=== PATIENT | female | born 1965 | race Caucasian/White ===

== ENCOUNTER 2016-10-08 09:58 | Emergency (ER) | payer OTHER ==
[~2016-10-08] VITALS: Ht 167.6 cm; Wt 81.2 kg
[~2016-10-08 09:58] MED LIST: ATENOLOL25 M1 PO; BACTRIM DS 8001 TAB PO; DILAUDID2 M1 PO; DULERA1 AR1 IH; ENJUVIA0.3 MG PO; FLEXERIL10 MG PO; FLEXERIL5 MG PO; FLONASE 50 MCG16 GM; KAPIDEX60 MG PO; LEVOTHYROXINE0.1 M1 PO; LEVOTHYROXINE0.15 MG PO; LORTAB 10/3251 TAB PO; LORTAB 5/500 501 TAB PO; LORTAB 500 MG-71 TAB PO; MEDROL 4MG. DOSE4 MG PO; NAPROSYN 500MG500 MG PO; NASONEX0.05 MG/AC NS; NORCO 325 MG-51 TAB PO; OMEGA 31000 MG PO; PERCOCET 10 MG1 EACH PO; PERCOCET 5/3251 EACH PO; PHENERGAN 25MG.25 M1 PO; PHENERGAN25 M3 PO; PRAVACHOL 20MG.20 MG PO; PREDNISONE50 MG PO; PROVENTIL0.09 MG/A1 IN; SINGULAIR10 MG PO; VICODIN 5/500 T1 TAB PO; VITAMIN D50000 IU PO; VOLTAREN75 MG PO; ZOFRAN4 MG PO
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
[2016-10-08 10:40] VITALS: BP 139/81
== END 2016-10-08 10:50 | disposition home or self-care (01) ==
LOC: ER 09:58
DX: S09.90XA Unspecified injury of head, initial encounter (principal); V89.2XXA Person injured in unspecified motor-vehicle accident, traffic, initial encounter

== ENCOUNTER 2017-03-16 17:36 | Observation (INO) | payer OTHER ==
[~2017-03-16] VITALS: Ht 167.6 cm; Wt 88.5 kg
[2017-03-16 17:48] VITALS: BP 123/83
[2017-03-16 18:24] LABS: LYMPH # 1.1 K/mm3 (0.7-4.5); LYMPH % 8.2 % (10-50.0)
[2017-03-16 18:28] LABS: HEMOGLOBIN 14.8 g/dL (12.2-16.2)
--- NOTE | 2017-03-16 18:39 | Emergency Room Report ---
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 N Clinical Suspician of Infection? N Mental Status: 1 - Regular (Normal Baseline) Sepsis Risk:Low Sepsis Risk Have you (or family members/close friends) recently traveled outside the [place]? N If Yes, where/when: Have you had exposure to infectious disease within the past month? TB? Other? Specify: Comment The patient states that she has not felt well since Sunday 3 days ago. She was at a conference and had eaten food that she thought caused an exacerbation of a recurrent gastroenteritis. She has had abdominal cramping and distention ever since Sunday. Today she began having vomiting. She also has severe sinus pressure ever since awakening this morning, this is also recurrent. She went to Dr. Mitchell's office and was given an injection of Rocephin, Depo-Medrol, and Decadron. She now comes to the emergency room because of the repetitive vomiting. No diarrhea. She is having normal bowel movements and passing flatus. No urinary symptoms. No fever. She has been seen here for this in the past and has been admitted. She has had a CT scan. ALLERGIES Coded Allergies: NSAIDS (Non-Steroidal Anti-Inflamma (SEVERE ULCERS 03/16/17) Home Medications Active Scripts PROMETHAZINE HCL (Phenergan 25MG Tab (Geq)) 25 MG PO Q6HP PRN N/V #14 TAB Prov: 09/09/16 ONDANSETRON HCL (Zofran 4MG Tab) 4 MG PO Q8HP PRN NAUSEA AND VOMITING #20 TAB Prov: 09/09/16 HYDROCODONE/ACETAMINOPHEN ([place] 5-325 Tablet) 1 TAB PO Q6HP PRN pain #10 TAB Prov: 09/09/16 Reported Medications Dexlansoprazole (Dexilant) 60 MG PO Q DAY #30 30 Days Levothyroxine Sodium (Levothyroxine 0.15MG) 0.2 MG PO DAILY ERGOCALCIFEROL (VITAMIN D2) (Vitamin D2) 50,000 IUNITS PO TWICE A WEEK #8 History Medical History General CAD? No Angina: No [place]: No Hypertension? No Hyperlipidemia? Yes CHF? No DVT? No PE? No COPD? No Asthma? Yes Anemia? No GERD? No Gastric ulcers? No GI Bleed? No Hernia? No Thyroid Problems? Yes Hypothyroidism? Yes CVA? No Seizures? No Diabetes? No Insulin Dependent: No Insulin Pump: No Home FSBS? No Renal Insuffiency? No End Stage Renal Disease? No UTI? Yes Stones? Yes BPH? No GB Disease: Yes Nephritic Syndrome? No Asplenia? No Hepatitis? No Sickle Cell Disease? No Arthritis? No Migraines? No Cataracts? No Glaucoma? No MRSA? No HIV? No TB? No Anxiety? No Depression? No Cancer? Yes Site: THYROID More? 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 Family History Family Hx Diabetes No CAD Yes Hypertension Yes Hyperlipidemia No Cancer Yes TB No Social History Smoking Hx Smoker: Former Smoker Tobacco: No Type N/A Are you/the child exposed to second-hand smoke: No Alcohol Alcohol: No Review of Systems All Other Systems Reviewed and Negative Constitutional denies fever Gastrointestinal abdominal pain, denies diarrhea, nausea, vomiting Psychiatric/Neurological headache Physical Exam Vital Signs Vital Signs Date Time Temp Pulse Resp B/P Pulse O2 O2 Flow FiO2 Ox Delivery Rate 03/16 1934 82 20 113/71 98 03/16 1931 20 03/16 1748 98.3 86 18 123/83 97 General Appearance no apparent distress Eye Exam - bilateral eye normal exam, bilateral eye PERRL, bilateral eye EOMI Ear, Nose, Throat tender paranasal sinuses Neck normal inspection, non-tender, supple, full range of motion Respiratory Status Yes: trachea midline, chest symmetrical, non tender chest. No: respiratory distress. Lung Sounds bilateral: normal breath sounds, lungs clear. Cardiovascular normal exam, regular rate/rhythm, no peripheral edema, no gallop, no JVD, no murmur, no rub, normal peripheral pulses Peripheral Pulses Pulses normal Yes Gastrointestinal normal bowel sounds, normal exam, non tender, soft, no organomegaly Extremities non-tender, normal range of motion, normal inspection Neurologic alert, normal exam, oriented x 3 Mental status normal mood/affect Skin intact, normal color, warm/dry Medical Decision Making LABS/Meds/Orders Pt receiving controlled substance in ED? Yes Jairo was queried for this patient? No Reason not queried - emergent pt cond=no time Results/Orders Laboratory Tests 03/16/17 1755: Sodium 137, Potassium 4.1, Chloride 99, Carbon Dioxide 33 H, BUN 19 H, Creatinine 0.9, Estimated Creat Clear 88, Estimated GFR (MDRD) 66, Glucose 139 H, Calcium 9.1, Total Bilirubin 0.6, AST 11 L, ALT 33, Alkaline Phosphatase 70, Total Protein 8.1, Albumin 4.1, Globulin 4.0 H, Albumin/Globulin Ratio 1.0 L, Amylase 58, Lipase 140, WBC 13.8 H, RBC 4.97, Hgb 14.8, Hct 45.5, MCV 91.6, RDW 12.9, Plt Count 312, MPV 7.9, Gran % 87.8 H, Gran # 12.1 H, Total Counted 100, Lymphocytes % 8.2 L, Monocytes % 3.2, Eosinophils % 0.4, Basophils % 0.4, Neutrophils 87 H, Band Neutrophils 2, Lymphocytes (Manual) 9 L, Lymphocytes # 1.1, Monocytes (Manual) 2, Monocytes # 0.4, Eosinophils # 0.1, Basophils # 0.1, RBC/WBC/PLT Morphology NORMAL, Platelet Estimate NORMAL, PUBS MCHC 32.6, MCH 29.9, Influenza Type A Ag NOT DETECTED, Influenza Type B Ag NOT DETECTED Current Medication Orders Sig/Sofya Start time Last Medication Dose Route Stop Time Status Admin Metronidazole 100 ML ONCE ONE 03/16 2045 AC IV 03/16 2144 Hydromorphone HCl 1 MG ONCE ONE 03/16 1930 DC 03/16 IV 03/16 Promethazine HCl 12.5 MG ONCE ONE 03/16 1930 DC 03/16 IV 03/16 Sodium Chloride 25 ML ONCE ONE 03/16 1930 DC 03/16 IV 03/16 Promethazine HCl 0 .STK-MED ONE 03/16 1929 DC .ROUTE Sodium Chloride 25 ML .STK-MED ONE 03/16 1929 DC IV Hydromorphone HCl 0 .STK-MED ONE 03/16 1928 DC .ROUTE Sodium Chloride 10 ML PRN PRN 03/16 181 AC IV 03/17 1803 Sodium Chloride 25 ML .STK-MED ONE 03/16 175 DC IV Sodium Chloride 1,000 ML .STK-MED ONE 03/16 1750 DC IV Promethazine HCl 0 .STK-MED ONE 03/16 1749 DC .ROUTE Orders Procedure Date/time Status DIET-NOTHING BY MOUTH 03/[address] ABD & PELVIS W/O CONTRAST 03/[address] ABD/PELVIS REQ 03/16 1923 Active IV SALINE LOCK 03/16 1803 Active LIPASE 03/16 180 Complete INFLUENZA A&B ANTIGENS 03/16 1803 Complete CBC WITH AUTO DIFF 03/16 1803 Complete CHEM 12 PROFILE 03/16 1803 Complete AMYLASE 03/16 1803 Complete DIFFERENTIAL-WBC 03/16 1755 Complete XRAY/CT/US XRAY/CT/US CT abdomen, pelvis Comment CT scan interpreted by [facility] radiologist. Faxed report received and reviewed: Scattered: Chronic wall thickening could be due to lack of distention or colitis. Progress - 8:35 PM: I have discussed the case with Dr. Mitchell who agrees to admit the patient to the hospital. We discussed the patient's clinical information, including history, exam, laboratory and radiology results and ED course. He will write admission orders Dr. Mitchell states that on her last admission she was diagnosed with C. difficile. Specific orders requested by the admitting physician: Begin Flagyl in the emergency department Departure Departure Disposition Still a Patient Clinical Impression Primary Impression: Colitis Secondary Impressions: Sinus headache Condition STABLE Referrals DIVYA SANFORD (Family) ED Critical Care Critical Care No at 2032
[2017-03-16 18:53] LABS: NEUTROPHILS 87 % (42-76)
--- NOTE | 2017-03-16 21:04 | HISTORY AND PHYSICAL REPORT ---
Demographics: Admit date: 03/16/17 Chief complaint: abd pain PRIMARY DIAGNOSIS: abd pain Allergies: Coded Allergies: NSAIDS (Non-Steroidal Anti-Inflamma (SEVERE ULCERS 03/16/17) History of present illness: History of present illness: this wf was seen in office earlier with more of resp type illness and was given im meds but has continued to have sx and now with more gi type sx with pain and vomiting - had c diff in recent past -pt was seen in the ed earlier patient states that she has not felt well since Sunday 3 days ago. She was at a conference and had eaten food that she thought caused an exacerbation of a recurrent gastroenteritis. She has had abdominal cramping and distention ever since Sunday. Today she began having vomiting. She also has severe sinus pressure ever since awakening this morning, this is also recurrent. She went to Dr. Mitchell's office and was given an injection of Rocephin, Depo-Medrol, and Decadron. She now comes to the emergency room because of the repetitive vomiting. No diarrhea. She is having normal bowel movements and passing flatus. No urinary symptoms. No fever. She has been seen here for this in the past and has been admitted. She has had a CT scan.pt with continued sx in the ed despite rx and had abn ct and labs and was admitted for fluids and treatment Past medical history: Family HX Family Hx Insignificant Yes Immunization HX Ped.Immunizations UTD Yes DT/Tetanus Unknown Flu 2015-FSN Pneumonia Refuses General CAD? No Angina: No [place]: No Hypertension? No Hyperlipidemia? Yes CHF? No DVT? No PE? No COPD? No Asthma? Yes Anemia? No GERD? No Gastric ulcers? No GI Bleed? No Hernia? No Thyroid Problems? Yes Hypothyroidism? Yes CVA? No Seizures? No Diabetes? No Insulin Dependent: No Insulin Pump: No Home FSBS? No Renal Insuffiency? No UTI? Yes Stones? Yes BPH? No GB Disease: Yes Nephritic Syndrome? No Asplenia? No Hepatitis? No Sickle Cell Disease? No Arthritis? No Migraines? No Cataracts? No Glaucoma? No MRSA? No HIV? No TB? No Anxiety? No Depression? No Cancer? Yes Site: THYROID More? No Past Surgical HX Previous Surgery?Y HYSTERECTOMY GALLBLADDER TONSILS PERICARDECTOMY BACK, KYPHOPLASTY T11 PARTIAL THYROIDECTOMY X2 Current home meds: Active Scripts PROMETHAZINE HCL (Phenergan 25MG Tab (Geq)) 25 MG PO Q6HP PRN N/V #14 TAB Prov: 09/09/16 ONDANSETRON HCL (Zofran 4MG Tab) 4 MG PO Q8HP PRN NAUSEA AND VOMITING #20 TAB Prov: 09/09/16 HYDROCODONE/ACETAMINOPHEN ([place] 5-325 Tablet) 1 TAB PO Q6HP PRN pain #10 TAB Prov: 09/09/16 Reported Medications Dexlansoprazole (Dexilant) 60 MG PO Q DAY #30 30 Days Levothyroxine Sodium (Levothyroxine 0.15MG) 0.2 MG PO DAILY ERGOCALCIFEROL (VITAMIN D2) (Vitamin D2) 50,000 IUNITS PO TWICE A WEEK #8 Social Hx: Smoking HX Tobacco No Type N/A Are you/the child exposed to second-hand smoke: No Alcohol Alcohol: No Hx of Drug Use Drug Use? No Patien't marital status is Patient's support system is good Review of systems: Constitutional see HPI, weakness. No: fever. Eyes No: drainage. Ears, Nose, Mouth, Throat No ear discharge, No nose congestion, No epistaxis, No throat pain Respiratory No: cough, shortness of breath, wheezing. Cardiovascular No chest pain, No palpitations, No syncope Gastrointestinal/Abdominal see HPI, abdominal pain, diarrhea, nausea, poor appetite, poor fluid intake, vomiting Genitourinary No: dysuria, frequency, hesitancy, hematuria. Musculoskeletal No: back pain, joint pain, joint swelling, neck pain. Skin No: rash. Neurological No: headache, seizure disorder. Psychiatric No: depressed. Exam: Lab data for last 24 hours: Laboratory Tests 03/16/17 1755: ESR 3 03/16/17 1755: Sodium 137, Potassium 4.1, Chloride 99, Carbon Dioxide 33 H, BUN 19 H, Creatinine 0.9, Estimated Creat Clear 88, Estimated GFR (MDRD) 66, Glucose 139 H, Calcium 9.1, Total Bilirubin 0.6, AST 11 L, ALT 33, Alkaline Phosphatase 70, Total Protein 8.1, Albumin 4.1, Globulin 4.0 H, Albumin/Globulin Ratio 1.0 L, Amylase 58, Lipase 140, WBC 13.8 H, RBC 4.97, Hgb 14.8, Hct 45.5, MCV 91.6, RDW 12.9, Plt Count 312, MPV 7.9, Gran % 87.8 H, Gran # 12.1 H, Total Counted 100, Lymphocytes % 8.2 L, Monocytes % 3.2, Eosinophils % 0.4, Basophils % 0.4, Neutrophils 87 H, Band Neutrophils 2, Lymphocytes (Manual) 9 L, Lymphocytes # 1.1, Monocytes (Manual) 2, Monocytes # 0.4, Eosinophils # 0.1, Basophils # 0.1, RBC/WBC/PLT Morphology NORMAL, Platelet Estimate NORMAL, PUBS MCHC 32.6, MCH 29.9, Influenza Type A Ag NOT DETECTED, Influenza Type B Ag NOT DETECTED Admission vital signs: 1ST Vital Signs Result Date Time Pulse Ox 97 03/16 174 B/P 123/83 03/16 1748 Temp 98.3 03/16 174 Pulse 86 03/16 1748 Resp 18 03/16 1748 O2 Delivery ROOM AIR 03/165 Exam General appearance: alert Eyes: anicteric, PERRLA ENT: dry mucous membranes Neck: no JVD Cardiovascular: regular rate & rhythm, no murmur Respiratory: clear to auscultation, no respiratory distress ABD: soft, abnormal bowel sounds, tenderness Genitourinary: no hematuria Extremities: moves all Musculoskeletal: equal muscle strength Skin: dry Neuro: alert, area development consultant II-XII nml as tested Additional information: will hydrate pt and give iv abx as she presents with colitis Plan: Problem List 1. Colitis Plan: pt has failed op and ed treatment - will need abx and fluids with pain and nausea meds at 0455
[2017-03-16 21:55] VITALS: BP 118/86
[2017-03-16 22:12] VITALS: BP 118/86
[2017-03-17 04:05] VITALS: BP 118/72
[2017-03-17 07:08] LABS: HEMOGLOBIN 13.9 g/dL (12.2-16.2)
--- NOTE | 2017-03-17 07:27 | RADIOLOGY REPORT PS360 ---
CT ABD PELVIS W/O CONTRAST CLINICAL INDICATION: Abdominal pain and distention PAIN / DISTENTION ORDERING PHYSICIAN: Chau Mitchell MD PATIENT AGE: 51 years COMPARISON: 09/08/2016 TECHNIQUE: Axial images obtained with sagittal and coronal reformats. PROCEDURE: Oral Contrast: None IV Contrast: None . FINDINGS: No acute finding in the lung bases. Prior cholecystectomy. No biliary dilatation. The liver, spleen, adrenal glands, and pancreas have an unremarkable unenhanced CT appearance. There is a 4 mm nonobstructing stone in the upper pole the left kidney. No hydronephrosis or ureteral calculi. Unremarkable appearing urinary bladder. Given history of appendectomy. No intestinal obstruction or free air. No evidence of diverticulitis. There is a mild amount retained colonic feces. There is some subsegmental thickening versus nondistention of the colon. Prior hysterectomy. There is a corrugated appearance of the L5 vertebral body consistent with a hemangioma. T11 vertebroplasty changes IMPRESSION: 1. No change with no acute finding. 2. Left nephrolithiasis. 3. Postsurgical changes
[2017-03-17 08:00] VITALS: BP 114/83
--- NOTE | 2017-03-17 08:40 | ACUTE CARE PROGRESS NOTE (QUA) ---
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 Colitis Patient condition Improving Plan: initiate discharge plan This inpt stay is expected to cross 2 MNs from start of care Yes Comments: doing better at 0839
--- NOTE | 2017-03-17 08:40 | ACUTE CARE PROGRESS NOTE (QUA) ---
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 Colitis Patient condition Improving Plan: initiate discharge plan This inpt stay is expected to cross 2 MNs from start of care Yes Comments: doing better at 0839
[2017-03-17] MEDS ORDERED: FLAGYL500 M1 PO (08:42)
--- NOTE | 2017-03-17 08:45 | DISCHARGE SUMMARY STANDARD ---
Demographics Admit date: 03/16/17 Discharge date: 03/17/17 History of present illness History of present illness this wf was seen in office earlier with more of resp type illness and was given im meds but has continued to have sx and now with more gi type sx with pain and vomiting - had c diff in recent past -pt was seen in the ed earlier patient states that she has not felt well since Sunday 3 days ago. She was at a conference and had eaten food that she thought caused an exacerbation of a recurrent gastroenteritis. She has had abdominal cramping and distention ever since Sunday. Today she began having vomiting. She also has severe sinus pressure ever since awakening this morning, this is also recurrent. She went to Dr. Mitchell's office and was given an injection of Rocephin, Depo-Medrol, and Decadron. She now comes to the emergency room because of the repetitive vomiting. No diarrhea. She is having normal bowel movements and passing flatus. No urinary symptoms. No fever. She has been seen here for this in the past and has been admitted. She has had a CT scan.pt with continued sx in the ed despite rx and had abn ct and labs and was admitted for fluids and treatment Hospital Course Hospital Course: pt did well with ivf and abx and pain meds - pt with improved sx and jose r po clear liquids - will d/c on flagyl at this time Discharge diagnoses Problem List 1. Colitis Medications Medications: Discharge meds are as noted. Follow up Follow up in office in: 6 DAYS with: DIVYA SANFORD Comment: fluids and rechek if needed at 0844
[2017-03-17 09:21] VITALS: BP 114/83
--- NOTE | 2017-03-17 09:49 | PHARMACY CLINIC NOTE ---
Patient Demographics Patient Demographics Admission date: 03/16/17 Date: 03/17/17 Time: 0949 Allergies Coded Allergies: NSAIDS (Non-Steroidal Anti-Inflamma (SEVERE ULCERS 03/16/17) HEIGHT- FT: 5 IN: 6.00 K.508 VTE General Information Labs: Laboratory Tests 03/17 03/16 [id number] [id number] Hematology Hgb (12.2 - 16.2 g/dL) 13.9 14.8 Hct (37.0 - 47.0 %) 41.7 45.5 Plt Count (142 - 424 K/mm3) [phone] Disclaimer The following section includes nursing documentation that has been pulled in for pharmacy review. Patient's VTE score: 2 Patient's VTE Risk: VERY LOW RISK Clinical trial participant? No VTE prophylaxis [id number] VTE prophylaxis ordered? Yes Type of prophylaxis/treatment: DOROTHEA at 0949
== END 2017-03-17 09:15 | disposition home or self-care (01) ==
LOC: ER 17:36 → 2ND 20:44 → ER 20:44 → 2ND 21:38
PROVIDERS: Emergency Medicine
DX: K52.9 Noninfective gastroenteritis and colitis, unspecified (principal); E89.0 Postprocedural hypothyroidism; J45.909 Unspecified asthma, uncomplicated; E78.5 Hyperlipidemia, unspecified; Z79.899 Other long term (current) drug therapy; Z85.850 Personal history of malignant neoplasm of thyroid
CPT/HCPCS: G0378

== ENCOUNTER → 2017-04-05 | Outpatient (CLI) | payer OTHER ==
[~2017-04-05] MED LIST changes: +FLAGYL500 M1 PO
--- NOTE | 2017-04-10 13:04 | RADIOLOGY REPORT PS360 ---
DIG MAMM-SCREEN [facility] W/CAD CAD Screening COMPARISON: Digital mammograms 11/25/2012 and 6 month follow-up left mammogram 07/17/2013 INDICATION: There is a history of breast cancer patient maternal grandmother. TECHNIQUE: Standard CC and MLO images were obtained. R2 CAD reviewed. FINDINGS: The breasts are composed primarily of fat with scattered fibroglandular densities in each breast. There is no suspicious lesion and no suspicious microcalcifications. IMPRESSION: However fatty parenchyma with no suspicious lesion seen recommend yearly follow-up BI-RADS CATEGORY: 1_Negative RECOMMENDED FOLLOWUP: 12M 12 MONTH FOLLOW-UP (A letter has been sent to the patient regarding results of the study.)
== END ==
LOC: RAD 09:44
DX: Z12.31 Encounter for screening mammogram for malignant neoplasm of breast (principal)
CPT/HCPCS: G0202